=== PATIENT | female | born 1970 | race Caucasian/White ===

== ENCOUNTER 2016-05-16 19:08 | Emergency (ER) | payer OTHER ==
[~2016-05-16 19:08] MED LIST: ALDACTONE25 MG PO; COLACE 100MG C100 MG PO; EPITOL200 MG PO; MIRALAX PACK 171 PKT PO; NEURONTIN 300300 MG PO; PLAVIX75 MG PO; PRAVACHOL20 MG PO; SYNTHROID75 MCG PO; ZESTRIL20 MG PO
[2016-07-14] MEDS ORDERED: KLONOPIN0.5 MG PO (08:06)
[2016-07-14] MEDS ORDERED: ABILIFY10 MG PO (08:06)
[2016-07-14] MEDS ORDERED: VISTARIL50 MG PO (08:08)
[2016-07-14] MEDS ORDERED: SPIRIVA18 MCG INH (08:08)
[2016-07-14] MEDS ORDERED: PROVENTIL HFA 61 INH INH (08:09)
[2016-07-14] MEDS ORDERED: TRAMADOL HCL50 MG PO (08:09)
[2016-07-14] MEDS ORDERED: NORCO 5-325 TA1 EACH PO (10:52)
== END 2016-05-16 19:35 | disposition left against medical advice (07) ==
LOC: ER1 19:08
DX: Z53.21 Procedure and treatment not carried out due to patient leaving prior to being seen by health care provider (principal)
CPT/HCPCS: J7030

== ENCOUNTER 2016-05-18 15:33 | Emergency (ER) | payer OTHER ==
[2016-05-18 16:40] LABS: HEMOGLOBIN 11.2 gm/dl (12.3-15.3); RED BLOOD COUNT 3.72 M/UL (4.00-5.10); WHITE BLOOD COUNT 14.3 K/UL (4.5-11.0)
[2016-05-18 17:04] LABS: BUN/CREATININE RATIO 7 (0-10)
[2016-07-14] MEDS ORDERED: ABILIFY10 MG PO (08:06)
[2016-07-14] MEDS ORDERED: KLONOPIN0.5 MG PO (08:06)
[2016-07-14] MEDS ORDERED: VISTARIL50 MG PO (08:08)
[2016-07-14] MEDS ORDERED: SPIRIVA18 MCG INH (08:08)
[2016-07-14] MEDS ORDERED: PROVENTIL HFA 61 INH INH (08:09)
[2016-07-14] MEDS ORDERED: TRAMADOL HCL50 MG PO (08:09)
[2016-07-14] MEDS ORDERED: NORCO 5-325 TA1 EACH PO (10:52)
== END 2016-05-18 17:55 | disposition home or self-care (01) ==
LOC: ER1 15:33
PROVIDERS: Emergency Medicine
DX: R20.0 Anesthesia of skin (principal); E86.0 Dehydration; Z86.73 Personal history of transient ischemic attack (TIA), and cerebral infarction without residual deficits; Z88.1 Allergy status to other antibiotic agents; Z88.2 Allergy status to sulfonamides; Z88.5 Allergy status to narcotic agent; Z88.6 Allergy status to analgesic agent; Z88.8 Allergy status to other drugs, medicaments and biological substances; Z79.02 Long term (current) use of antithrombotics/antiplatelets; Z79.899 Other long term (current) drug therapy
CPT/HCPCS: 36415; 70450; 71010; 80053; 82550; 82553; 83874; 84484; 85025; 85610; 85730; 93005; 96374; 96375; 99285; J1200; J2405; J2930; J7030

== ENCOUNTER 2016-05-22 21:23 | Emergency (ER) | payer OTHER ==
[2016-07-14] MEDS ORDERED: KLONOPIN0.5 MG PO (08:06)
[2016-07-14] MEDS ORDERED: ABILIFY10 MG PO (08:06)
[2016-07-14] MEDS ORDERED: SPIRIVA18 MCG INH (08:08)
[2016-07-14] MEDS ORDERED: VISTARIL50 MG PO (08:08)
[2016-07-14] MEDS ORDERED: PROVENTIL HFA 61 INH INH (08:09)
[2016-07-14] MEDS ORDERED: TRAMADOL HCL50 MG PO (08:09)
[2016-07-14] MEDS ORDERED: NORCO 5-325 TA1 EACH PO (10:52)
== END 2016-05-22 22:47 | disposition left against medical advice (07) ==
LOC: ER1 21:23
DX: Z53.21 Procedure and treatment not carried out due to patient leaving prior to being seen by health care provider (principal)

== ENCOUNTER 2016-05-28 17:47 | Emergency (ER) | payer OTHER ==
[2016-07-14] MEDS ORDERED: ABILIFY10 MG PO (08:06)
[2016-07-14] MEDS ORDERED: KLONOPIN0.5 MG PO (08:06)
[2016-07-14] MEDS ORDERED: VISTARIL50 MG PO (08:08)
[2016-07-14] MEDS ORDERED: SPIRIVA18 MCG INH (08:08)
[2016-07-14] MEDS ORDERED: PROVENTIL HFA 61 INH INH (08:09)
[2016-07-14] MEDS ORDERED: TRAMADOL HCL50 MG PO (08:09)
[2016-07-14] MEDS ORDERED: NORCO 5-325 TA1 EACH PO (10:52)
== END 2016-05-28 19:00 | disposition home or self-care (01) ==
LOC: ER1 17:47
DX: S93.491A Sprain of other ligament of right ankle, initial encounter (principal); X50.1XXA Overexertion from prolonged static or awkward postures, initial encounter; Y93.39 Activity, other involving climbing, rappelling and jumping off; Y92.009 Unspecified place in unspecified non-institutional (private) residence as the place of occurrence of the external cause; I10 Essential (primary) hypertension; Z88.2 Allergy status to sulfonamides; Z88.5 Allergy status to narcotic agent; Z88.6 Allergy status to analgesic agent; Z79.899 Other long term (current) drug therapy
CPT/HCPCS: 73564; 73590; 73610; 99283

== ENCOUNTER 2016-05-29 18:06 | Emergency (ER) | payer OTHER ==
[2016-07-14] MEDS ORDERED: ABILIFY10 MG PO (08:06)
[2016-07-14] MEDS ORDERED: KLONOPIN0.5 MG PO (08:06)
[2016-07-14] MEDS ORDERED: SPIRIVA18 MCG INH (08:08)
[2016-07-14] MEDS ORDERED: VISTARIL50 MG PO (08:08)
[2016-07-14] MEDS ORDERED: TRAMADOL HCL50 MG PO (08:09)
[2016-07-14] MEDS ORDERED: PROVENTIL HFA 61 INH INH (08:09)
[2016-07-14] MEDS ORDERED: NORCO 5-325 TA1 EACH PO (10:52)
== END 2016-05-29 19:12 | disposition left against medical advice (07) ==
LOC: ER1 18:06
DX: Z53.21 Procedure and treatment not carried out due to patient leaving prior to being seen by health care provider (principal)

== ENCOUNTER 2016-05-31 05:17 | Emergency (ER) | payer OTHER ==
[2016-07-14] MEDS ORDERED: ABILIFY10 MG PO (08:06)
[2016-07-14] MEDS ORDERED: KLONOPIN0.5 MG PO (08:06)
[2016-07-14] MEDS ORDERED: VISTARIL50 MG PO (08:08)
[2016-07-14] MEDS ORDERED: SPIRIVA18 MCG INH (08:08)
[2016-07-14] MEDS ORDERED: TRAMADOL HCL50 MG PO (08:09)
[2016-07-14] MEDS ORDERED: PROVENTIL HFA 61 INH INH (08:09)
[2016-07-14] MEDS ORDERED: NORCO 5-325 TA1 EACH PO (10:52)
== END 2016-05-31 06:50 | disposition home or self-care (01) ==
LOC: ER1 05:17
DX: G89.29 Other chronic pain (principal); R10.9 Unspecified abdominal pain; F17.200 Nicotine dependence, unspecified, uncomplicated; Z90.49 Acquired absence of other specified parts of digestive tract; Z88.2 Allergy status to sulfonamides; Z88.5 Allergy status to narcotic agent; Z88.6 Allergy status to analgesic agent; Z88.8 Allergy status to other drugs, medicaments and biological substances
CPT/HCPCS: 99283

== ENCOUNTER 2016-06-03 15:27 | Observation (INO) | payer OTHER ==
[~2016-06-03] VITALS: Ht 157.5 cm; Wt 79.0 kg
[2016-06-03 18:38] LABS: HEMOGLOBIN 10.8 gm/dl (12.3-15.3); RED BLOOD COUNT 3.66 M/UL (4.00-5.10); WHITE BLOOD COUNT 10.1 K/UL (4.5-11.0)
[2016-06-03 18:57] LABS: BUN/CREATININE RATIO 18 (0-10)
[2016-06-04] MEDS ORDERED: PROZAC40 MG PO (01:46)
[2016-06-04] MEDS ORDERED: HYDRALAZINE HCL25 MG PO (01:46)
[2016-06-04] MEDS ORDERED: ATIVAN0.5 MG PO (01:47)
[2016-06-04] MEDS ORDERED: TEGRETOL200 MG PO (01:47)
[2016-06-04] MEDS ORDERED: TYLENOL 500 MG500 MG PO (12:05)
[2016-06-04] MEDS ORDERED: PROTONIX40 MG PO (12:05)
[2016-06-04] MEDS ORDERED: PHENERGAN 25 MG25 M1 PO (12:07)
[2016-07-14] MEDS ORDERED: ABILIFY10 MG PO (08:06)
[2016-07-14] MEDS ORDERED: KLONOPIN0.5 MG PO (08:06)
[2016-07-14] MEDS ORDERED: VISTARIL50 MG PO (08:08)
[2016-07-14] MEDS ORDERED: SPIRIVA18 MCG INH (08:08)
[2016-07-14] MEDS ORDERED: TRAMADOL HCL50 MG PO (08:09)
[2016-07-14] MEDS ORDERED: PROVENTIL HFA 61 INH INH (08:09)
[2016-07-14] MEDS ORDERED: NORCO 5-325 TA1 EACH PO (10:52)
== END 2016-06-04 12:24 | disposition home or self-care (01) ==
LOC: ER1 15:27 → ZEROF 20:25 → MED SURG 4 20:25
PROVIDERS: Emergency Medicine; ADMIT Internal Medicine
DX: B34.9 Viral infection, unspecified (principal); R79.1 Abnormal coagulation profile; I10 Essential (primary) hypertension; M54.9 Dorsalgia, unspecified; G89.29 Other chronic pain; E78.5 Hyperlipidemia, unspecified; I25.10 Atherosclerotic heart disease of native coronary artery without angina pectoris; G40.909 Epilepsy, unspecified, not intractable, without status epilepticus; F17.210 Nicotine dependence, cigarettes, uncomplicated; Z86.711 Personal history of pulmonary embolism; Z79.02 Long term (current) use of antithrombotics/antiplatelets; Z79.899 Other long term (current) drug therapy; Z86.73 Personal history of transient ischemic attack (TIA), and cerebral infarction without residual deficits; E03.9 Hypothyroidism, unspecified; Z88.8 Allergy status to other drugs, medicaments and biological substances; Z88.0 Allergy status to penicillin; Z88.2 Allergy status to sulfonamides; Z88.1 Allergy status to other antibiotic agents; Z90.49 Acquired absence of other specified parts of digestive tract; Z98.51 Tubal ligation status; Z90.710 Acquired absence of both cervix and uterus; Z82.49 Family history of ischemic heart disease and other diseases of the circulatory system
CPT/HCPCS: 36415; 71020; 80053; 80061; 81001; 83036; 84443; 84484; 85025; 85379; 87040; 87086; 93005; 96361; 96374; 96375; 99285; G0378; J2270; J2405; J2550; J7030; J7050

== ENCOUNTER 2016-06-07 22:00 | Emergency (ER) | payer OTHER ==
[~2016-06-07 22:00] MED LIST changes: +ATIVAN0.5 MG PO; +HYDRALAZINE HCL25 MG PO; +PHENERGAN 25 MG25 M1 PO; +PROTONIX40 MG PO; +PROZAC40 MG PO; +TEGRETOL200 MG PO; +TYLENOL 500 MG500 MG PO
[2016-06-07 23:21] LABS: BUN/CREATININE RATIO 18 (0-10)
[2016-06-08 00:57] LABS: HEMOGLOBIN 10.7 gm/dl (12.3-15.3); RED BLOOD COUNT 3.6 M/UL (4.00-5.10); WHITE BLOOD COUNT 12.3 K/UL (4.5-11.0)
[2016-07-14] MEDS ORDERED: ABILIFY10 MG PO (08:06)
[2016-07-14] MEDS ORDERED: KLONOPIN0.5 MG PO (08:06)
[2016-07-14] MEDS ORDERED: VISTARIL50 MG PO (08:08)
[2016-07-14] MEDS ORDERED: SPIRIVA18 MCG INH (08:08)
[2016-07-14] MEDS ORDERED: TRAMADOL HCL50 MG PO (08:09)
[2016-07-14] MEDS ORDERED: PROVENTIL HFA 61 INH INH (08:09)
[2016-07-14] MEDS ORDERED: NORCO 5-325 TA1 EACH PO (10:52)
== END 2016-06-08 01:45 | disposition home or self-care (01) ==
LOC: ER1 22:00
PROVIDERS: Emergency Medicine
DX: R07.89 Other chest pain (principal); M79.602 Pain in left arm; Z86.73 Personal history of transient ischemic attack (TIA), and cerebral infarction without residual deficits; F17.200 Nicotine dependence, unspecified, uncomplicated; Z88.2 Allergy status to sulfonamides; Z88.5 Allergy status to narcotic agent; Z88.6 Allergy status to analgesic agent; Z88.8 Allergy status to other drugs, medicaments and biological substances; Z79.02 Long term (current) use of antithrombotics/antiplatelets; Z79.899 Other long term (current) drug therapy
CPT/HCPCS: 36415; 70450; 71010; 80048; 84484; 85025; 93005; 96360; 96372; 99285; J3030; J3410; Q0177

== ENCOUNTER 2016-06-14 16:18 | Emergency (ER) | payer OTHER ==
[2016-06-14 17:37] LABS: HEMOGLOBIN 9.8 gm/dl (12.3-15.3); RED BLOOD COUNT 3.29 M/UL (4.00-5.10); WHITE BLOOD COUNT 13.3 K/UL (4.5-11.0)
[2016-06-14 17:54] LABS: BUN/CREATININE RATIO 10 (0-10)
[2016-07-14] MEDS ORDERED: ABILIFY10 MG PO (08:06)
[2016-07-14] MEDS ORDERED: KLONOPIN0.5 MG PO (08:06)
[2016-07-14] MEDS ORDERED: VISTARIL50 MG PO (08:08)
[2016-07-14] MEDS ORDERED: SPIRIVA18 MCG INH (08:08)
[2016-07-14] MEDS ORDERED: TRAMADOL HCL50 MG PO (08:09)
[2016-07-14] MEDS ORDERED: PROVENTIL HFA 61 INH INH (08:09)
[2016-07-14] MEDS ORDERED: NORCO 5-325 TA1 EACH PO (10:52)
== END 2016-06-14 20:15 | disposition home or self-care (01) ==
LOC: ER1 16:18
PROVIDERS: Emergency Medicine
DX: R07.89 Other chest pain (principal); R22.42 Localized swelling, mass and lump, left lower limb; I10 Essential (primary) hypertension; Z86.73 Personal history of transient ischemic attack (TIA), and cerebral infarction without residual deficits; Z87.891 Personal history of nicotine dependence; Z88.2 Allergy status to sulfonamides; Z88.5 Allergy status to narcotic agent; Z88.6 Allergy status to analgesic agent; Z88.8 Allergy status to other drugs, medicaments and biological substances; Z90.49 Acquired absence of other specified parts of digestive tract; Z79.02 Long term (current) use of antithrombotics/antiplatelets; Z79.899 Other long term (current) drug therapy
CPT/HCPCS: 36415; 71010; 80053; 81001; 82550; 82553; 83874; 83880; 84484; 85025; 85379; 93005; 99285

== ENCOUNTER → 2016-07-07 | Outpatient (CLI) | payer OTHER ==
[~2016-07-07] MED LIST changes: +ABILIFY10 MG PO; +KLONOPIN0.5 MG PO; +NORCO 5-325 TA1 EACH PO; +PROVENTIL HFA 61 INH INH; +SPIRIVA18 MCG INH; +TRAMADOL HCL50 MG PO; +VISTARIL50 MG PO
== END ==
LOC: OPSV 10:07
DX: Z45.2 Encounter for adjustment and management of vascular access device (principal); D47.3 Essential (hemorrhagic) thrombocythemia; D50.9 Iron deficiency anemia, unspecified; K90.9 Intestinal malabsorption, unspecified
CPT/HCPCS: G0463

== ENCOUNTER → 2016-07-13 | Outpatient (CLI) | payer OTHER ==
[2016-07-13 14:04] LABS: HEMOGLOBIN 12.6 gm/dl (12.3-15.3); RED BLOOD COUNT 4.15 M/UL (4.00-5.10); WHITE BLOOD COUNT 10.7 K/UL (4.5-11.0)
[2016-07-13 14:23] LABS: BUN/CREATININE RATIO 9 (0-10)
== END ==
LOC: OPSV2 12:31
PROVIDERS: Anesthesiology
DX: Z01.812 Encounter for preprocedural laboratory examination (principal); D64.9 Anemia, unspecified
CPT/HCPCS: 36415; 80048; 83540; 83550; 85025

== ENCOUNTER → 2016-07-14 | Day surgery (SDC) | payer OTHER | END | disposition home or self-care (01) | LOC: OR 06:39 | DX: I87.8 Other specified disorders of veins (principal); E61.1 Iron deficiency; D72.829 Elevated white blood cell count, unspecified; J44.9 Chronic obstructive pulmonary disease, unspecified; K21.9 Gastro-esophageal reflux disease without esophagitis; E78.00 Pure hypercholesterolemia, unspecified; E78.5 Hyperlipidemia, unspecified; I10 Essential (primary) hypertension; E03.9 Hypothyroidism, unspecified; G43.909 Migraine, unspecified, not intractable, without status migrainosus; E66.9 Obesity, unspecified; I25.10 Atherosclerotic heart disease of native coronary artery without angina pectoris; I25.2 Old myocardial infarction; E55.9 Vitamin D deficiency, unspecified; F17.210 Nicotine dependence, cigarettes, uncomplicated; Z87.19 Personal history of other diseases of the digestive system; Z87.01 Personal history of pneumonia (recurrent); Z88.8 Allergy status to other drugs, medicaments and biological substances; Z86.73 Personal history of transient ischemic attack (TIA), and cerebral infarction without residual deficits; Z91.041 Radiographic dye allergy status; Z79.02 Long term (current) use of antithrombotics/antiplatelets; Z79.899 Other long term (current) drug therapy; Z90.710 Acquired absence of both cervix and uterus; Z98.51 Tubal ligation status; Z90.49 Acquired absence of other specified parts of digestive tract | CPT/HCPCS: 71010; 77001; C1769; C1788; J1200; J1644; J1956; J3010; J3370; J7030; J7120 ==

== ENCOUNTER 2020-04-02 14:11 | Emergency (ER) | payer MEDICARE, OTHER, MEDICAID ==
[~2020-04-02] VITALS: Ht 154.9 cm; Wt 103.0 kg
[~2020-04-02 14:11] MED LIST changes: +ACETAMINOPHEN500 MG PO; +ALDACTONE50 MG PO; +AZITHROMYCIN500 MG PO; +BACTROBAN OINT22 GM EXT; +BUSPIRONE HCL7.5 MG PO; +CEFUROXIME500 MG PO; +CLEOCIN HCL300 MG PO; +CLEOCIN T30 GM TP; +CORTIZONE-1057 GM TP; +CYCLOBENZAPRINE5 MG PO; +ELAVIL 25 MG TA25 MG PO; +EMGALITY120 MG/1 M SQ; +ESTRACE1 MG PO; +FEOSOL325 MG PO; +FLEXERIL 10 MG10 MG PO; +FLONASE 0.05% N16 GM; +FOLIC ACID 1 MG1 MG PO; +GLUCOPHAGE500 MG PO; +ISOSORBIDE MONO30 MG PO; +LEVAQUIN750 MG PO; +LOPRESSOR50 MG PO; +LORTAB ELIXIR 715 ML PO; +LYRICA200 MG PO; +MEDROL4 MG PO; +MULTIVITAMINS1 EAC1 PO; +NAPROSYN500 MG PO; +NEURONTIN800 MG PO; +NORFLEX 100 MG100 MG PO; +OMNICEF 300 MG300 MG PO; +OZEMPIC1 MG/0.75 SC; +PERCOCET 5-3251 EACH PO; +PHENERGAN 12.12.5 M1 PO; +PREDNISONE 50 M50 MG PO; +PREDNISONE20 MG PO; +SYMBICORT 80-10.2 GM INH; +SYMBICORT 80-41 INHA INH; +TESSALON PERLE100 MG PO; +VENTOLIN HFA 66.7 GM INH; +VIBRAMYCIN100 MG PO; +Voltaren Gel 1 % TOP; +Voltaren Gel 1% TOP; +XOFLUZA 40 MG PO; +ZANTAC150 MG PO; +ZOFRAN4 MG PO
[2020-04-02 15:32] LABS: HEMOGLOBIN 14.1 gm/dl (12.3-15.3); RED BLOOD COUNT 4.38 M/UL (4.00-5.10); WHITE BLOOD COUNT 8.4 K/UL (4.5-11.0)
== END 2020-04-02 15:55 | disposition home or self-care (01) ==
LOC: ER1 14:11
PROVIDERS: Preventive Medicine Occupational Medicine
DX: R07.89 Other chest pain (principal); I25.10 Atherosclerotic heart disease of native coronary artery without angina pectoris; F17.210 Nicotine dependence, cigarettes, uncomplicated; Z88.2 Allergy status to sulfonamides; Z88.6 Allergy status to analgesic agent; Z88.8 Allergy status to other drugs, medicaments and biological substances; Z91.013 Allergy to seafood; Z53.20 Procedure and treatment not carried out because of patient's decision for unspecified reasons
CPT/HCPCS: 71045; 85025; 85652; 93005; 96374; 96375; 99285; C9113; J2405

== ENCOUNTER 2020-04-14 10:17 | Emergency (ER) | payer MEDICARE, OTHER ==
[2020-04-14 12:00] LABS: HEMOGLOBIN 13.5 gm/dl (12.3-15.3); RED BLOOD COUNT 4.21 M/UL (4.00-5.10); WHITE BLOOD COUNT 9.9 K/UL (4.5-11.0)
[2020-04-14 12:21] LABS: BUN/CREATININE RATIO 11 (0-10)
[2020-04-14] MEDS ORDERED: ZOFRAN4 MG PO (13:38)
[2020-04-14] MEDS ORDERED: BENTYL 20MG TAB20 MG PO (13:38)
== END 2020-04-14 13:45 | disposition home or self-care (01) ==
LOC: ER1 10:17
PROVIDERS: Physician Assistant
DX: R10.10 Upper abdominal pain, unspecified (principal); R19.7 Diarrhea, unspecified; R11.0 Nausea; E11.9 Type 2 diabetes mellitus without complications; I10 Essential (primary) hypertension; F17.210 Nicotine dependence, cigarettes, uncomplicated; Z79.84 Long term (current) use of oral hypoglycemic drugs; Z90.710 Acquired absence of both cervix and uterus; Z98.890 Other specified postprocedural states; Z90.49 Acquired absence of other specified parts of digestive tract; Z90.81 Acquired absence of spleen
CPT/HCPCS: 36415; 80053; 81001; 82150; 83690; 85025; 96374; 96375; 99284; J2270; J2405; Q9967

== ENCOUNTER 2020-05-05 15:24 | Emergency (ER) | payer MEDICARE, OTHER ==
[~2020-05-05 15:24] MED LIST changes: +BENTYL 20MG TAB20 MG PO
[2020-05-05] MEDS ORDERED: AUGMENTIN 875-1 EACH PO (17:46)
== END 2020-05-05 16:15 | disposition home or self-care (01) ==
LOC: ER1 15:24
DX: G43.909 Migraine, unspecified, not intractable, without status migrainosus (principal); J32.0 Chronic maxillary sinusitis; R20.2 Paresthesia of skin; E11.9 Type 2 diabetes mellitus without complications; I10 Essential (primary) hypertension; Z90.710 Acquired absence of both cervix and uterus; Z86.73 Personal history of transient ischemic attack (TIA), and cerebral infarction without residual deficits; Z88.1 Allergy status to other antibiotic agents; Z79.01 Long term (current) use of anticoagulants; Z90.49 Acquired absence of other specified parts of digestive tract
CPT/HCPCS: 70450; 81001; 96374; 96375; 99284; J0595; J1200; J2405; J2765

== ENCOUNTER 2020-05-26 20:57 | Emergency (ER) | payer MEDICARE, OTHER ==
[~2020-05-26 20:57] MED LIST changes: +AUGMENTIN 875-1 EACH PO
[2020-05-26 22:41] LABS: HEMOGLOBIN 11.6 gm/dl (12.3-15.3); RED BLOOD COUNT 3.61 M/UL (4.00-5.10); WHITE BLOOD COUNT 16.6 K/UL (4.5-11.0)
[2020-05-26 22:56] LABS: BUN/CREATININE RATIO 9 (0-10)
== END 2020-05-27 00:35 | disposition home or self-care (01) ==
LOC: ER1 20:57
PROVIDERS: Emergency Medicine
DX: J20.9 Acute bronchitis, unspecified (principal); J00 Acute nasopharyngitis [common cold]; Z20.822 Contact with and (suspected) exposure to COVID-19
CPT/HCPCS: 0240U; 71045; 80048; 81001; 84703; 85025; 96374; 96375; 99283; J1200; J1642; J1885

== ENCOUNTER 2020-06-14 16:43 | Emergency (ER) | payer MEDICARE, OTHER ==
[2020-06-14 18:26] LABS: HEMOGLOBIN 12.5 gm/dl (12.3-15.3); RED BLOOD COUNT 3.92 M/UL (4.00-5.10)
[2020-06-14 18:49] LABS: BUN/CREATININE RATIO 11 (0-10)
[2020-06-14] MEDS ORDERED: ZITHROMAX250 MG PO (20:37)
== END 2020-06-14 20:50 | disposition home or self-care (01) ==
LOC: ER1 16:43
PROVIDERS: Physician Assistant
DX: R19.7 Diarrhea, unspecified (principal); R10.9 Unspecified abdominal pain; J44.0 Chronic obstructive pulmonary disease with (acute) lower respiratory infection; J18.9 Pneumonia, unspecified organism; D72.829 Elevated white blood cell count, unspecified; E87.6 Hypokalemia; M79.671 Pain in right foot; F17.210 Nicotine dependence, cigarettes, uncomplicated; E11.9 Type 2 diabetes mellitus without complications; Z20.822 Contact with and (suspected) exposure to COVID-19; E78.5 Hyperlipidemia, unspecified; I10 Essential (primary) hypertension; Z88.0 Allergy status to penicillin; Z88.6 Allergy status to analgesic agent; Z88.5 Allergy status to narcotic agent; Z88.1 Allergy status to other antibiotic agents; Z88.8 Allergy status to other drugs, medicaments and biological substances; Z88.2 Allergy status to sulfonamides
CPT/HCPCS: 0240U; 71045; 80053; 81001; 82550; 82553; 83690; 83874; 84484; 85025; 87086; 96374; 96375; 99284; J2270; J2405; Q9967

== ENCOUNTER 2020-07-04 07:57 | Emergency (ER) | payer MEDICARE, OTHER ==
[~2020-07-04 07:57] MED LIST changes: +ZITHROMAX250 MG PO
[2020-07-05] MEDS ORDERED: ZOFRAN4 MG PO (16:13)
== END 2020-07-04 11:05 | disposition home or self-care (01) ==
LOC: ER1 07:57
DX: G43.909 Migraine, unspecified, not intractable, without status migrainosus (principal); E11.9 Type 2 diabetes mellitus without complications; I25.2 Old myocardial infarction; Z86.73 Personal history of transient ischemic attack (TIA), and cerebral infarction without residual deficits
CPT/HCPCS: 96372; 99283; J0780; J1200; J2060

== ENCOUNTER 2020-07-05 13:36 | Emergency (ER) | payer MEDICARE, OTHER ==
[2020-07-05] MEDS ORDERED: ZOFRAN4 MG PO (16:13)
== END 2020-07-05 16:19 | disposition home or self-care (01) ==
LOC: ER1 13:36
DX: G43.909 Migraine, unspecified, not intractable, without status migrainosus (principal); I25.10 Atherosclerotic heart disease of native coronary artery without angina pectoris; I10 Essential (primary) hypertension; I25.2 Old myocardial infarction; F17.210 Nicotine dependence, cigarettes, uncomplicated; Z86.73 Personal history of transient ischemic attack (TIA), and cerebral infarction without residual deficits; Z90.49 Acquired absence of other specified parts of digestive tract; Z90.710 Acquired absence of both cervix and uterus; Z88.2 Allergy status to sulfonamides; Z88.6 Allergy status to analgesic agent
CPT/HCPCS: 96374; 96375; 99283; J0780; J1200; J2270; J2765; J7030

== ENCOUNTER 2020-07-06 17:48 | Emergency (ER) | payer MEDICARE, OTHER | END 2020-07-06 19:00 | disposition left against medical advice (07) | LOC: ER1 17:48 | DX: Z53.21 Procedure and treatment not carried out due to patient leaving prior to being seen by health care provider (principal) | CPT/HCPCS: 70450 ==

== ENCOUNTER 2020-08-19 06:42 | Emergency (ER) | payer MEDICARE, OTHER ==
[2020-08-19 07:18] LABS: HEMOGLOBIN 12.1 gm/dl (12.3-15.3); RED BLOOD COUNT 3.87 M/UL (4.00-5.10); WHITE BLOOD COUNT 9.1 K/UL (4.5-11.0)
[2020-08-19 07:53] LABS: BUN/CREATININE RATIO 14 (0-10)
== END 2020-08-19 09:20 | disposition home or self-care (01) ==
LOC: ER1 06:42
PROVIDERS: Emergency Medicine
DX: R07.89 Other chest pain (principal); G43.909 Migraine, unspecified, not intractable, without status migrainosus; E11.9 Type 2 diabetes mellitus without complications; I10 Essential (primary) hypertension; E78.5 Hyperlipidemia, unspecified; I25.2 Old myocardial infarction; J44.9 Chronic obstructive pulmonary disease, unspecified; F17.200 Nicotine dependence, unspecified, uncomplicated; Z90.49 Acquired absence of other specified parts of digestive tract; Z90.710 Acquired absence of both cervix and uterus
CPT/HCPCS: 71045; 80053; 82550; 82553; 83735; 83874; 84484; 85025; 85610; 85730; 93005; 96372; 99285; J0595; J0780

== ENCOUNTER 2020-09-05 21:49 | Emergency (ER) | payer MEDICARE, OTHER ==
[2020-09-05] MEDS ORDERED: PREDNISONE 20 M20 MG PO (23:17)
[2020-09-05] MEDS ORDERED: DOXYCYCLINE HY100 M2 PO (23:17)
== END 2020-09-05 23:30 | disposition home or self-care (01) ==
LOC: ER1 21:49
DX: G43.909 Migraine, unspecified, not intractable, without status migrainosus (principal); J44.1 Chronic obstructive pulmonary disease with (acute) exacerbation; I25.2 Old myocardial infarction; I25.10 Atherosclerotic heart disease of native coronary artery without angina pectoris; Z90.49 Acquired absence of other specified parts of digestive tract; Z90.710 Acquired absence of both cervix and uterus; Z86.73 Personal history of transient ischemic attack (TIA), and cerebral infarction without residual deficits; F17.200 Nicotine dependence, unspecified, uncomplicated
CPT/HCPCS: 71045; 93005; 96374; 96375; 99283; J0595; J0780

== ENCOUNTER 2020-09-07 13:22 | Emergency (ER) | payer MEDICARE, OTHER, MEDICAID ==
[~2020-09-07 13:22] MED LIST changes: +DOXYCYCLINE HY100 M2 PO; +PREDNISONE 20 M20 MG PO
[2020-09-07 16:03] LABS: HEMOGLOBIN 12.6 gm/dl (12.3-15.3); RED BLOOD COUNT 4.01 M/UL (4.00-5.10); WHITE BLOOD COUNT 12.7 K/UL (4.5-11.0)
[2020-09-07 16:28] LABS: BUN/CREATININE RATIO 15 (0-10)
== END 2020-09-07 16:24 | disposition left against medical advice (07) ==
LOC: ER1 13:22
PROVIDERS: Family Medicine
DX: Z53.21 Procedure and treatment not carried out due to patient leaving prior to being seen by health care provider (principal)
CPT/HCPCS: 70450; 80053; 82550; 82553; 83874; 84439; 84443; 84484; 85025; 93005

== ENCOUNTER 2020-09-11 06:38 | Emergency (ER) | payer MEDICARE, OTHER | END 2020-09-11 08:06 | disposition home or self-care (01) | LOC: ER1 06:38 | DX: G43.909 Migraine, unspecified, not intractable, without status migrainosus (principal); I10 Essential (primary) hypertension; I25.10 Atherosclerotic heart disease of native coronary artery without angina pectoris; Z86.73 Personal history of transient ischemic attack (TIA), and cerebral infarction without residual deficits; Z90.49 Acquired absence of other specified parts of digestive tract; F17.200 Nicotine dependence, unspecified, uncomplicated | CPT/HCPCS: 96374; 99283; J2550 ==

== ENCOUNTER 2020-09-20 17:27 | Emergency (ER) | payer MEDICARE, OTHER ==
[2020-09-20 18:34] LABS: HEMOGLOBIN 12.3 gm/dl (12.3-15.3); RED BLOOD COUNT 3.92 M/UL (4.00-5.10); WHITE BLOOD COUNT 11.3 K/UL (4.5-11.0)
[2020-09-20 18:52] LABS: BUN/CREATININE RATIO 11 (0-10)
== END 2020-09-20 21:39 | disposition home or self-care (01) ==
LOC: ER1 17:27
PROVIDERS: Physician Assistant Medical
DX: G43.909 Migraine, unspecified, not intractable, without status migrainosus (principal); I10 Essential (primary) hypertension; J44.9 Chronic obstructive pulmonary disease, unspecified; E11.9 Type 2 diabetes mellitus without complications; F17.210 Nicotine dependence, cigarettes, uncomplicated; Z90.710 Acquired absence of both cervix and uterus; Z91.013 Allergy to seafood; Z88.8 Allergy status to other drugs, medicaments and biological substances
CPT/HCPCS: 70450; 80053; 85025; 85610; 96374; 96375; 96376; 99284; J1200; J2270; J2765; J7030

== ENCOUNTER 2020-09-27 18:12 | Emergency (ER) | payer MEDICARE, OTHER ==
[2020-09-27 18:49] LABS: HEMOGLOBIN 11.8 gm/dl (12.3-15.3); RED BLOOD COUNT 3.78 M/UL (4.00-5.10); WHITE BLOOD COUNT 12.4 K/UL (4.5-11.0)
[2020-09-27 19:10] LABS: BUN/CREATININE RATIO 10 (0-10)
== END 2020-09-27 19:46 | disposition home or self-care (01) ==
LOC: ER1 18:12
PROVIDERS: Emergency Medicine
DX: M79.671 Pain in right foot (principal); G43.809 Other migraine, not intractable, without status migrainosus; F17.200 Nicotine dependence, unspecified, uncomplicated; Z86.73 Personal history of transient ischemic attack (TIA), and cerebral infarction without residual deficits
CPT/HCPCS: 73630; 80053; 85025; 99284

== ENCOUNTER 2020-09-29 19:22 | Emergency (ER) | payer MEDICARE, OTHER ==
[2020-09-29 19:48] LABS: HEMOGLOBIN 12.3 gm/dl (12.3-15.3); RED BLOOD COUNT 3.96 M/UL (4.00-5.10); WHITE BLOOD COUNT 11.8 K/UL (4.5-11.0)
[2020-09-29 20:16] LABS: BUN/CREATININE RATIO 11 (0-10)
== END 2020-09-29 20:45 | disposition home or self-care (01) ==
LOC: ER1 19:22
PROVIDERS: Physician Assistant
DX: R07.9 Chest pain, unspecified (principal); R06.00 Dyspnea, unspecified; R51.9 Headache, unspecified; E87.6 Hypokalemia; R11.0 Nausea; F17.200 Nicotine dependence, unspecified, uncomplicated
CPT/HCPCS: 71045; 80053; 82550; 82553; 83874; 84484; 85025; 93005; 94664; 96374; 99285; J2405

== ENCOUNTER 2020-10-05 11:16 | Emergency (ER) | payer MEDICARE, OTHER ==
[2020-10-05 12:59] LABS: HEMOGLOBIN 12.1 gm/dl (12.3-15.3); RED BLOOD COUNT 3.88 M/UL (4.00-5.10); WHITE BLOOD COUNT 15.6 K/UL (4.5-11.0)
[2020-10-05] MEDS ORDERED: NORFLEX 100 MG100 MG PO (13:17)
[2020-10-05] MEDS ORDERED: VIBRAMYCIN100 MG PO (13:23)
[2020-10-05 13:45] LABS: BUN/CREATININE RATIO 17 (0-10)
== END 2020-10-05 13:30 | disposition home or self-care (01) ==
LOC: ER1 11:16
PROVIDERS: Emergency Medicine
DX: G43.909 Migraine, unspecified, not intractable, without status migrainosus (principal); J44.9 Chronic obstructive pulmonary disease, unspecified; E11.9 Type 2 diabetes mellitus without complications; I10 Essential (primary) hypertension; F17.200 Nicotine dependence, unspecified, uncomplicated; Z90.49 Acquired absence of other specified parts of digestive tract; Z90.710 Acquired absence of both cervix and uterus
CPT/HCPCS: 80053; 85025; 96374; 96375; 99283; J2360; J2550

== ENCOUNTER 2020-10-07 14:17 | Emergency (ER) | payer MEDICARE, OTHER ==
[2020-10-07 15:30] LABS: HEMOGLOBIN 11.7 gm/dl (12.3-15.3); RED BLOOD COUNT 3.93 M/UL (4.00-5.10); WHITE BLOOD COUNT 15.1 K/UL (4.5-11.0)
[2020-10-07 15:42] LABS: BUN/CREATININE RATIO 19 (0-10)
== END 2020-10-07 16:30 | disposition home or self-care (01) ==
LOC: ER1 14:17
PROVIDERS: Nurse Practitioner
DX: R10.13 Epigastric pain (principal); R11.0 Nausea; I25.2 Old myocardial infarction; E78.5 Hyperlipidemia, unspecified; F17.210 Nicotine dependence, cigarettes, uncomplicated; I10 Essential (primary) hypertension; Z86.73 Personal history of transient ischemic attack (TIA), and cerebral infarction without residual deficits; Z90.49 Acquired absence of other specified parts of digestive tract; Z90.710 Acquired absence of both cervix and uterus; Z88.6 Allergy status to analgesic agent; Z88.2 Allergy status to sulfonamides; Z88.1 Allergy status to other antibiotic agents
CPT/HCPCS: 80053; 80307; 81001; 83605; 83690; 85025; 96374; 99284; J0500; J2405

== ENCOUNTER 2020-10-10 13:40 | Emergency (ER) | payer MEDICARE, OTHER ==
[2020-10-10 14:50] LABS: HEMOGLOBIN 12.5 gm/dl (12.3-15.3); RED BLOOD COUNT 4.04 M/UL (4.00-5.10); WHITE BLOOD COUNT 15.5 K/UL (4.5-11.0)
[2020-10-10 15:13] LABS: BUN/CREATININE RATIO 19 (0-10)
[2020-10-10] MEDS ORDERED: PROVENTIL HFA6.7 GM INH (15:54)
[2020-10-10] MEDS ORDERED: VIBRAMYCIN 100100 MG PO (15:54)
== END 2020-10-10 16:00 | disposition home or self-care (01) ==
LOC: ER1 13:40
PROVIDERS: Physician Assistant
DX: J44.1 Chronic obstructive pulmonary disease with (acute) exacerbation (principal); E11.9 Type 2 diabetes mellitus without complications; E03.9 Hypothyroidism, unspecified; F17.210 Nicotine dependence, cigarettes, uncomplicated; Z90.49 Acquired absence of other specified parts of digestive tract; Z90.710 Acquired absence of both cervix and uterus; Z88.6 Allergy status to analgesic agent; Z88.8 Allergy status to other drugs, medicaments and biological substances; Z88.1 Allergy status to other antibiotic agents; Z86.73 Personal history of transient ischemic attack (TIA), and cerebral infarction without residual deficits
CPT/HCPCS: 71045; 80053; 82550; 82553; 83874; 84484; 85025; 93005; 99285

== ENCOUNTER 2020-10-16 14:11 | Emergency (ER) | payer MEDICARE, OTHER ==
[~2020-10-16 14:11] MED LIST changes: +PROVENTIL HFA6.7 GM INH; +VIBRAMYCIN 100100 MG PO
[2020-10-16 15:39] LABS: BUN/CREATININE RATIO 16 (0-10)
[2020-10-16 16:04] LABS: HEMOGLOBIN 12.2 gm/dl (12.3-15.3); RED BLOOD COUNT 4.21 M/UL (4.00-5.10); WHITE BLOOD COUNT 26.5 K/UL (4.5-11.0)
== END 2020-10-16 15:15 | disposition home or self-care (01) ==
LOC: ER1 14:11
PROVIDERS: Physician Assistant
DX: R07.9 Chest pain, unspecified (principal); E11.9 Type 2 diabetes mellitus without complications; I11.9 Hypertensive heart disease without heart failure; I25.2 Old myocardial infarction; F17.200 Nicotine dependence, unspecified, uncomplicated; Z86.73 Personal history of transient ischemic attack (TIA), and cerebral infarction without residual deficits; Z90.49 Acquired absence of other specified parts of digestive tract; Z90.710 Acquired absence of both cervix and uterus; Z88.2 Allergy status to sulfonamides; Z88.6 Allergy status to analgesic agent
CPT/HCPCS: 80053; 82550; 82553; 83874; 84484; 85025; 93005; 99285

== ENCOUNTER 2020-10-16 21:31 | Emergency (ER) | payer MEDICARE, OTHER | END 2020-10-16 21:57 | disposition left against medical advice (07) | LOC: ER1 21:31 | DX: R07.9 Chest pain, unspecified (principal); I25.10 Atherosclerotic heart disease of native coronary artery without angina pectoris; E11.9 Type 2 diabetes mellitus without complications; I11.9 Hypertensive heart disease without heart failure; Z86.73 Personal history of transient ischemic attack (TIA), and cerebral infarction without residual deficits; F17.210 Nicotine dependence, cigarettes, uncomplicated; Z90.710 Acquired absence of both cervix and uterus; Z90.49 Acquired absence of other specified parts of digestive tract | CPT/HCPCS: 93005; 99284 ==

== ENCOUNTER 2020-10-21 13:24 | Emergency (ER) | payer MEDICARE, OTHER ==
[2020-10-21 14:51] LABS: HEMOGLOBIN 12.1 gm/dl (12.3-15.3); RED BLOOD COUNT 4.14 M/UL (4.00-5.10); WHITE BLOOD COUNT 14.9 K/UL (4.5-11.0)
[2020-10-21 15:02] LABS: BUN/CREATININE RATIO 12 (0-10)
== END 2020-10-21 15:03 | disposition home or self-care (01) ==
LOC: ER1 13:24
PROVIDERS: Physician Assistant
DX: R07.9 Chest pain, unspecified (principal); I25.2 Old myocardial infarction; E11.9 Type 2 diabetes mellitus without complications; I10 Essential (primary) hypertension; F17.200 Nicotine dependence, unspecified, uncomplicated; Z86.73 Personal history of transient ischemic attack (TIA), and cerebral infarction without residual deficits; Z90.710 Acquired absence of both cervix and uterus; Z90.49 Acquired absence of other specified parts of digestive tract
CPT/HCPCS: 71045; 80053; 82550; 82553; 83874; 84484; 85025; 99285

== ENCOUNTER 2020-11-01 13:37 | Emergency (ER) | payer MEDICARE, OTHER ==
[2020-11-01 15:30] LABS: HEMOGLOBIN 12.4 gm/dl (12.3-15.3); RED BLOOD COUNT 4.01 M/UL (4.00-5.10); WHITE BLOOD COUNT 9.8 K/UL (4.5-11.0)
[2020-11-01 15:45] LABS: BUN/CREATININE RATIO 15 (0-10)
== END 2020-11-01 17:08 | disposition left against medical advice (07) ==
LOC: ER1 13:37
PROVIDERS: Physician Assistant Medical
DX: R07.9 Chest pain, unspecified (principal); I25.2 Old myocardial infarction; Z86.73 Personal history of transient ischemic attack (TIA), and cerebral infarction without residual deficits; F17.210 Nicotine dependence, cigarettes, uncomplicated
CPT/HCPCS: 70450; 71045; 80053; 82550; 82553; 83874; 84484; 85025; 99284

== ENCOUNTER 2020-11-23 11:28 | Emergency (ER) | payer MEDICARE, OTHER | END 2020-11-23 12:15 | disposition left against medical advice (07) | LOC: ER1 11:28 | DX: Z53.21 Procedure and treatment not carried out due to patient leaving prior to being seen by health care provider (principal) | CPT/HCPCS: 81001 ==

== ENCOUNTER 2020-12-01 12:36 | Emergency (ER) | payer MEDICARE, OTHER ==
[2020-12-01 13:17] LABS: HEMOGLOBIN 11.6 gm/dl (12.3-15.3); RED BLOOD COUNT 3.79 M/UL (4.00-5.10)
[2020-12-01 13:45] LABS: BUN/CREATININE RATIO 24 (0-10)
== END 2020-12-01 13:45 | disposition home or self-care (01) ==
LOC: ER1 12:36
PROVIDERS: Physician Assistant
DX: R10.9 Unspecified abdominal pain (principal); R53.1 Weakness; R20.2 Paresthesia of skin; I10 Essential (primary) hypertension; E11.9 Type 2 diabetes mellitus without complications; F17.200 Nicotine dependence, unspecified, uncomplicated; Z90.710 Acquired absence of both cervix and uterus; Z86.73 Personal history of transient ischemic attack (TIA), and cerebral infarction without residual deficits
CPT/HCPCS: 80053; 81001; 82550; 82553; 83874; 84484; 85025; 93005; 99285

== ENCOUNTER 2020-12-04 17:10 | Emergency (ER) | payer MEDICARE, OTHER | END 2020-12-04 20:27 | disposition home or self-care (01) | LOC: ER1 17:10 | DX: J44.1 Chronic obstructive pulmonary disease with (acute) exacerbation (principal); R51.9 Headache, unspecified; Z86.73 Personal history of transient ischemic attack (TIA), and cerebral infarction without residual deficits; I25.2 Old myocardial infarction; Z88.6 Allergy status to analgesic agent; Z88.2 Allergy status to sulfonamides; Z91.013 Allergy to seafood; F17.200 Nicotine dependence, unspecified, uncomplicated | CPT/HCPCS: 71045; 93005; 94664; 96374; 99285; J1642; J2405 ==

== ENCOUNTER 2021-02-08 13:52 | Emergency (ER) | payer MEDICARE, OTHER ==
[2021-02-08 15:28] LABS: HEMOGLOBIN 12.2 gm/dl (12.3-15.3); RED BLOOD COUNT 3.8 M/UL (4.00-5.10); WHITE BLOOD COUNT 13.4 K/UL (4.5-11.0)
[2021-02-08 16:18] LABS: BUN/CREATININE RATIO 11 (0-10)
== END 2021-02-08 16:57 | disposition left against medical advice (07) ==
LOC: ER1 13:52
PROVIDERS: Physician Assistant
DX: R51.9 Headache, unspecified (principal); R10.9 Unspecified abdominal pain; R10.813 Right lower quadrant abdominal tenderness; R20.2 Paresthesia of skin; I25.2 Old myocardial infarction; E11.9 Type 2 diabetes mellitus without complications; I51.9 Heart disease, unspecified; E78.5 Hyperlipidemia, unspecified; Z86.73 Personal history of transient ischemic attack (TIA), and cerebral infarction without residual deficits; Z90.710 Acquired absence of both cervix and uterus; Z79.01 Long term (current) use of anticoagulants; Z79.02 Long term (current) use of antithrombotics/antiplatelets; Z88.6 Allergy status to analgesic agent; Z88.2 Allergy status to sulfonamides
CPT/HCPCS: 71045; 80053; 82550; 82553; 83874; 84484; 85025; 96372; 99281; J2550

== ENCOUNTER 2021-03-24 14:31 | Emergency (ER) | payer MEDICARE, OTHER | END 2021-03-24 17:35 | disposition home or self-care (01) | LOC: ER1 14:31 | DX: R51.9 Headache, unspecified (principal); R20.2 Paresthesia of skin; Z88.8 Allergy status to other drugs, medicaments and biological substances; Z88.2 Allergy status to sulfonamides; F17.210 Nicotine dependence, cigarettes, uncomplicated; Z90.710 Acquired absence of both cervix and uterus; E11.9 Type 2 diabetes mellitus without complications; Z90.49 Acquired absence of other specified parts of digestive tract; F17.200 Nicotine dependence, unspecified, uncomplicated | CPT/HCPCS: 93005; 99283 ==

== ENCOUNTER 2021-03-27 20:26 | Emergency (ER) | payer MEDICARE, OTHER ==
[2021-03-27 21:55] LABS: HEMOGLOBIN 12.4 gm/dl (12.3-15.3); RED BLOOD COUNT 4.12 M/UL (4.00-5.10); WHITE BLOOD COUNT 17.3 K/UL (4.5-11.0)
[2021-03-27 22:30] LABS: BUN/CREATININE RATIO 16 (0-10)
== END 2021-03-27 22:00 | disposition left against medical advice (07) ==
LOC: ER1 20:26
PROVIDERS: Physician Assistant
DX: R20.2 Paresthesia of skin (principal); Z86.73 Personal history of transient ischemic attack (TIA), and cerebral infarction without residual deficits; E11.9 Type 2 diabetes mellitus without complications; Z20.822 Contact with and (suspected) exposure to COVID-19; I10 Essential (primary) hypertension; Z79.84 Long term (current) use of oral hypoglycemic drugs; F17.210 Nicotine dependence, cigarettes, uncomplicated; J44.9 Chronic obstructive pulmonary disease, unspecified
CPT/HCPCS: 70450; 71045; 80053; 82550; 82553; 83874; 84484; 85025; 85610; 85730; 93005; 99283; U0002

== ENCOUNTER 2021-04-13 17:51 | Emergency (ER) | payer MEDICARE, OTHER ==
[2021-04-13] MEDS ORDERED: IMITREX25 MG PO (19:43)
== END 2021-04-13 20:00 | disposition home or self-care (01) ==
LOC: ER1 17:51
DX: R51.9 Headache, unspecified (principal); L29.9 Pruritus, unspecified
CPT/HCPCS: 93005; 96374; 99283; J1100; Q0177

== ENCOUNTER 2021-05-18 08:52 | Emergency (ER) | payer MEDICARE, OTHER ==
[~2021-05-18 08:52] MED LIST changes: +IMITREX25 MG PO
== END 2021-05-18 09:44 | disposition left against medical advice (07) ==
LOC: ER1 08:52
DX: M25.571 Pain in right ankle and joints of right foot (principal); F41.9 Anxiety disorder, unspecified; E11.9 Type 2 diabetes mellitus without complications; I10 Essential (primary) hypertension; F17.200 Nicotine dependence, unspecified, uncomplicated
CPT/HCPCS: 99283

== ENCOUNTER 2021-06-09 15:06 | Emergency (ER) | payer MEDICARE, OTHER ==
[2021-06-09 16:35] LABS: RED BLOOD COUNT 3.63 M/UL (4.00-5.10)
[2021-06-09 16:54] LABS: BUN/CREATININE RATIO 11 (0-10)
== END 2021-06-09 17:28 | disposition home or self-care (01) ==
LOC: ER1 15:06
PROVIDERS: Physician Assistant Medical
DX: J06.9 Acute upper respiratory infection, unspecified (principal); M54.9 Dorsalgia, unspecified; I10 Essential (primary) hypertension; R10.9 Unspecified abdominal pain; Z20.822 Contact with and (suspected) exposure to COVID-19
CPT/HCPCS: 0240U; 71045; 80053; 85025; 99283

== ENCOUNTER 2021-10-01 16:09 | Emergency (ER) | payer MEDICARE, OTHER ==
[2021-10-01 17:25] LABS: HEMOGLOBIN 11.9 gm/dl (12.3-15.3); RED BLOOD COUNT 3.93 M/UL (4.00-5.10); WHITE BLOOD COUNT 13.2 K/UL (4.5-11.0)
[2021-10-01 18:13] LABS: BUN/CREATININE RATIO 20 (0-10)
== END 2021-10-01 18:55 | disposition left against medical advice (07) ==
LOC: ER1 16:09
PROVIDERS: Family Medicine
DX: R07.9 Chest pain, unspecified (principal); Z76.5 Malingerer [conscious simulation]; F17.210 Nicotine dependence, cigarettes, uncomplicated
CPT/HCPCS: 80053; 80307; 81001; 82550; 82553; 84484; 85025; 85610; 93005; 99283